=== PATIENT | female | born 1995 | race African-American/Black ===

== ENCOUNTER 2018-09-09 | Emergency (ER) | payer SELFPAY ==
[2018-09-09 00:17] VITALS: BP 119/64; PULSE 65; TEMP 98.4; BMI 38.7
--- NOTE | 2018-09-09 01:22 | PDOC ---
History of Present Illness - General Chief Complaint: Vaginal Sxs Stated Complaint: SWELLING,ANKLE Time Seen by Provider: 09/09/18 01:21 History Source: Patient Exam Limitations: No Limitations Past History - Travel Traveled outside of the country in the last 30 days: No Close contact w/someone who was outside of country & ill: No - Past Medical History Home Medications: Ambulatory Orders Cephalexin [Keflex] 500 mg PO BID 7 Days #14 capsule 09/09/18 metroNIDAZOLE [Metronidazole] 500 mg PO BID 7 Days #14 tablet 09/09/18 COPD: No - Suicide/Smoking/Psychosocial Hx Smoking History: Unknown if ever smoked Review of Systems - Review of Systems Able to Perform ROS?: Yes Is the patient limited [place] proficient: No *Physical Exam - Vital Signs Last Vital Signs Temp Pulse Resp BP Pulse Ox 98.4 F 65 20 119/64 100 09/09/18 00:11 09/09/18 00:11 09/09/18 00:11 09/09/18 00:11 09/09/18 00:11 - Physical Exam Comments: Vitals stable, pt afebrile. Pt in NAD, normal body habitus. Pt alert and oriented x3. restaurant front manager generally intact, muscular strength and sensation intact. No midline spinal tenderness, step-offs, or crepitus. Head normocephalic, atraumatic. Eyes PERRLA, EOMI. Oropharynx without erythema or exudates, no LAD b/l. No nasal congestion, hearing intact. Clear heart sounds, S1/S2, no JVD, b/l pedal edema, or heart murmur. Clear lung sounds, no respiratory distress, wheezes, crackles, or accessory muscle use. No abdominal or CVA tenderness to palpation, no rebound, no guarding. Abdomen soft, non-distended, and with normoactive bowel sounds. Skin without jaundice or rash. 09/09/18 01:57 *DC/Admit/Observation/Transfer Diagnosis at time of Disposition: Bacterial vaginosis - Discharge Dispostion Disposition: HOME Condition at time of disposition: Good Decision to Admit order: No - Referrals Referrals: [facility] [place] [Provider Group] Virgie Hills MD [Staff Physician] - - Patient Instructions Printed Discharge Instructions: DI for Bacterial Vaginosis Additional Instructions: You were seen in the ER today for vaginal itching. We are treating you with antibiotics, please take these as prescribed. Please take your medicine with some food, as they may cause some stomach upset and diarrhea. Please follow-up with your primary care doctor and [facility] within 1-2 days to discuss your visit and make sure your symptoms have improved. Please return to the ER if you have any worsening pain, development of fevers or chills, loss of consciousness, inability to tolerate food or fluids, or any other concerns. - Post Discharge Activity
--- NOTE | 2018-09-09 01:34 | PDOC ---
Attending Attestation - Resident Resident Name: VikiVeronica - ED Attending Attestation I have performed the following: I have examined & evaluated the patient, The case was reviewed & discussed with the resident, I agree w/resident's findings & plan - HPI HPI: 09/09/18 02:13 23-year-old female with vaginal discharge and dysuria. She admits to sexual activity with 1 partner, unprotected. - Physicial Exam PE: 09/09/18 02:14 GENERAL: Awake, in no acute distress HEAD: No signs of trauma EYES: ENT:clear without exudates. Moist mucosa NECK: Normal ROM, LUNGS:. Normal work of breathing. HEART: Regular rate and rhythm, ABDOMEN: Soft, nondistended EXTREMITIES:. No erythema, or tenderness NEUROLOGICAL: Alert, SKIN: Warm, Dry - Medical Decision Making 09/09/18 02:19 23-year-old female with vaginal discharge and history of unprotected intercourse Plan for GC/chlamydia treatment DC on Keflex and Flagyl Patient advised that formal cultures are pending and she should refrain from sexual activity, she is also aware that if positive her partner will need treatment as well
[2018-09-09 01:48] LABS: EPI CELLS 17.4 /HPF (0-5/HPF); HYALINE CASTS 21 /lpf (0-8); URINE APPEARANCE TURBID; URINE BACTERIA 418.5 /hpf (NEGATIVE); URINE BILIRUBIN NEGATIVE (NEGATIVE); URINE COLOR YELLOW; URINE GLUCOSE (UA) NEGATIVE (NEGATIVE); URINE KETONE NEGATIVE (NEGATIVE); URINE LEUK ESTERASE 3+ (NEGATIVE); URINE NITRITE NEGATIVE (NEGATIVE); URINE PROTEIN 1+ (NEGATIVE); URINE RBC 12 /hpf (0-4); URINE WBC 535 /hpf (0-5)
[2018-09-09] MEDS ORDERED: AZITHROMYCIN 500 MG TABLET PO ONE (02:05)
[2018-09-09] MEDS ORDERED: metroNIDAZOLE 500 MG TABLET PO ONE (02:06)
[2018-09-09] MEDS ORDERED: metroNIDAZOLE 250 MG TABLET ONE (02:11)
[2018-09-09] MEDS ORDERED: cefTRIAXone SODIUM 1 GM VIAL ONE (02:11)
[2018-09-09] MEDS ORDERED: AZITHROMYCIN 250 MG TABLET ONE (02:11)
[2018-09-09] MEDS ORDERED: LIDOCAINE HCL 1%, 10 MG/ML (20ML VIAL) ONE (02:14)
== END 2018-09-09 02:22 | disposition home or self-care (01) ==
LOC: JER
DX: N76.0 Acute vaginitis (principal); B96.89 Other specified bacterial agents as the cause of diseases classified elsewhere
CPT/HCPCS: 36415; 81003; 84703; 87491; 87591; 87661; 96372; 99281-25

== ENCOUNTER 2018-12-16 04:59 | Emergency (ER) | payer OTHER ==
[2018-12-16 06:07] VITALS: BP 123/51; PULSE 84; TEMP 98.2; BMI 34.7
--- NOTE | 2018-12-16 07:30 | PDOC ---
History of Present Illness - General Chief Complaint: Vaginal Sxs Stated Complaint: VAGINAL ODOR Time Seen by Provider: 12/16/18 07:29 Past History - Past Medical History Allergies/Adverse Reactions: Allergies Allergy/AdvReac Type Severity Reaction Status Date / Time No Known Allergies Allergy Verified 12/16/18 06:07 Home Medications: Ambulatory Orders Cephalexin [Keflex] 500 mg PO BID 7 Days #14 capsule 09/09/18 metroNIDAZOLE [Metronidazole] 500 mg PO BID 7 Days #14 tablet 09/09/18 COPD: No - Psycho Social/Smoking Cessation Hx Smoking History: Never smoked Hx Alcohol Use: No Drug/Substance Use Hx: No *Physical Exam - Vital Signs Last Vital Signs Temp Pulse Resp BP Pulse Ox 98.2 F 84 78 H 123/51 L 100 12/16/18 05:00 12/16/18 05:00 12/16/18 05:00 12/16/18 05:00 12/16/18 05:00 Medical Decision Making - Medical Decision Making 23F 12/16/18 07:30 Discharge - Discharge Information Condition: Fair - Follow up/Referral - Patient Discharge Instructions - Post Discharge Activity
--- NOTE | 2018-12-16 07:31 | PDOC ---
History of Present Illness - General Chief Complaint: Vaginal Sxs Stated Complaint: VAGINAL ODOR Time Seen by Provider: 12/16/18 07:29 - History of Present Illness Initial Comments: 12/16/18 07:29 Ms. Valdes is a 23 yo female w/ pmh of BV who presents for evaluation of foul smelling urine. Patient reports she has commonly had foul smelling vaginal smell following her menstrual cycle and believes this to be a similar episode. Denies any other symptoms. Denies any pain or discharge. Does not believe she is at this time. The patient denies chest pain, shortness of breath, headache and dizziness. Denies fever, chills, nausea, vomit, diarrhea and constipation. Denies dysuria, frequency, urgency and hematuria. Past History - Past Medical History Allergies/Adverse Reactions: Allergies Allergy/AdvReac Type Severity Reaction Status Date / Time No Known Allergies Allergy Verified 12/16/18 06:07 Home Medications: Ambulatory Orders Cephalexin [Keflex] 500 mg PO BID 7 Days #14 capsule 09/09/18 metroNIDAZOLE [Metronidazole] 500 mg PO BID 7 Days #14 tablet 09/09/18 metroNIDAZOLE [Flagyl -] 500 mg PO BID #14 tablet 12/16/18 COPD: No - Psycho Social/Smoking Cessation Hx Smoking History: Never smoked Hx Alcohol Use: No Drug/Substance Use Hx: No Review of Systems - Review of Systems Comments:: 12/16/18 07:31 GENERAL/CONSTITUTIONAL: No fever or chills. No weakness. HEAD, EYES, EARS, NOSE AND THROAT: No change in vision. No ear pain or discharge. No sore throat. CARDIOVASCULAR: No chest pain or shortness of breath RESPIRATORY: No cough, wheezing, or hemoptysis. GASTROINTESTINAL: No nausea, vomiting, diarrhea or constipation. GENITOURINARY: +Vaginal smell as described. No dysuria, frequency, or change in urination. MUSCULOSKELETAL: No joint or muscle swelling or pain. No neck or back pain. SKIN: No rash NEUROLOGIC: No headache, vertigo, loss of consciousness, or change in strength/ sensation. ENDOCRINE: No increased thirst. No abnormal weight change HEMATOLOGIC/LYMPHATIC: No anemia, easy bleeding, or history of blood clots. ALLERGIC/IMMUNOLOGIC: No hives or skin allergy. *Physical Exam - Vital Signs Last Vital Signs Temp Pulse Resp BP Pulse Ox 98.2 F 84 78 H 123/51 L 100 12/16/18 05:00 12/16/18 05:00 12/16/18 05:00 12/16/18 05:00 12/16/18 05:00 - Physical Exam Comments: 12/16/18 07:31 GENERAL: Awake, alert, and fully oriented, in no acute distress HEAD: No signs of trauma, normocephalic, atraumatic EYES: PERRLA, EOMI, sclera anicteric, conjunctiva clear ENT: Auricles normal inspection, hearing grossly normal, nares patent, oropharynx clear without exudates. Moist mucosa NECK: Normal ROM, supple, no lymphadenopathy, JVD, or masses LUNGS: No distress, speaks full sentences, clear to auscultation bilaterally HEART: Regular rate and rhythm, normal S1 and S2, no murmurs, rubs or gallops, peripheral pulses normal and equal bilaterally. ABDOMEN: Soft, nontender, normoactive bowel sounds. No guarding, no rebound. No masses EXTREMITIES: Normal inspection, Normal range of motion, no edema. No clubbing or cyanosis. NEUROLOGICAL: Cranial nerves II through XII grossly intact. Normal speech, normal gait, no focal sensorimotor deficits SKIN: Warm, Dry, normal turgor, no rashes or lesions noted. : Vaginal exam significant only for thickened physiologic discharge. No CMT, no blood noted in vaginal vault, no adnexal tenderness. Medical Decision Making - Medical Decision Making 12/16/18 07:53 Ms. Valdes is a 23 yo female w/ pmh as described who presents for evaluation of symptoms concerning for BV vs. trichomonis vs. UTI vs. STI. Patient exam concerning for thickened discharge c/w candidiasis. Given patient's prior trichomonal diagnosis and concern for gonorrhea/chlamydia on repeat evaluation, will cover patient for trichomonis, doris, and gonorrhea/chlamydia empirically. Diflucan, rocephin, and azithromycin given in ED. Flagyl sent to pt 's pharmacy. Patient elected to leave prior to UA being sent. UA/UCx will be followed-up. Discharge - Discharge Information Problems reviewed: Yes Clinical Impression/Diagnosis: Vaginal symptom Condition: Fair Disposition: HOME - Additional Discharge Information Prescriptions: metroNIDAZOLE [Flagyl -] 500 mg PO BID #14 tablet - Follow up/Referral - Patient Discharge Instructions Patient Printed Discharge Instructions: DI for Vaginal Yeast Infection Additional Instructions: You were evaluated today in the ER for your vaginal symptoms. We sent your urine for evaluation and performed a vaginal exam which was significant for discharge concerning for infection. We gave you medication coverage for fungal, bacterial, and viral infections and sent a proscription to your pharmacy. Please follow-up with primary care provider later this week for further evaluation. Return to ER if any fever, chills, pain, or other concerning symptoms. - Post Discharge Activity
[2018-12-16] MEDS ORDERED: AZITHROMYCIN 500 MG TABLET PO ONE (07:45)
[2018-12-16] MEDS ORDERED: FLUCONAZOLE 150 MG TABLET PO ONE (07:45)
--- NOTE | 2018-12-16 08:39 | PDOC ---
Attending Attestation - Resident Resident Name: RolansharimannyAnoopKvng - ED Attending Attestation I have performed the following: I have examined & evaluated the patient, The case was reviewed & discussed with the resident, I agree w/resident's findings & plan - HPI HPI: 12/16/18 08:37 23-year-old female with history of trichomonas in the past presents now with intermittent foul-smelling discharge/odor from vagina without pelvic pain or fevers or chills or abnormal bleeding. No urinary complaints. - Physicial Exam PE: 12/16/18 08:37 Vitals are stable, urine pending Well-appearing, afebrile Abdomen benign Pelvic per resident note - Medical Decision Making 12/16/18 08:38 23-year-old female presenting with vaginal discharge and foul odor, history of trichomonas. Treated empirically with cef/azithro/flagyl left before UA/urine preg resulted, will call with any change in plan f/u communication and outreach manager
[2018-12-16 08:48] LABS: PH,URINE 5.5 (5.0-8.0); URINE APPEARANCE CLEAR; URINE BILIRUBIN NEGATIVE (NEGATIVE); URINE COLOR YELLOW; URINE GLUCOSE (UA) NEGATIVE (NEGATIVE); URINE KETONE NEGATIVE (NEGATIVE); URINE LEUK ESTERASE NEGATIVE (NEGATIVE); URINE NITRITE NEGATIVE (NEGATIVE); URINE PROTEIN NEGATIVE (NEGATIVE); URINE UROBILINOGEN 0.2 mg/dL (0.2-1.0)
== END 2018-12-16 09:29 | disposition home or self-care (01) ==
LOC: JER 04:59
DX: B37.3 Candidiasis of vulva and vagina (principal); Z87.42 Personal history of other diseases of the female genital tract; Z86.19 Personal history of other infectious and parasitic diseases
CPT/HCPCS: 81003; 84703; 99282-25

== ENCOUNTER 2019-01-31 00:16 | Emergency (ER) | payer OTHER ==
[2019-01-31 01:57] VITALS: BP 138/69; PULSE 72; TEMP 97.6; BMI 35.4
--- NOTE | 2019-01-31 02:09 | PDOC ---
Attending Attestation - Resident Resident Name: Gaurang Eugene - ED Attending Attestation I have performed the following: I have examined & evaluated the patient, The case was reviewed & discussed with the resident, I agree w/resident's findings & plan - HPI HPI: 01/31/19 03:09 Pt has a numb inedx finger on her right hand. She wrks at [employer], but she has been on vacation x 1 week. She doesn't work out, she hasn't injured self and she has no other complaints. She sleeps on her side, and she hay have caused a peripheral neuropathy. Pt has no cervical pain or pain radiating down from the neck. - Physicial Exam PE: 01/31/19 03:11 Agree with resident exam. 01/31/19 03:12 Pt has clear heart and lungs and she has no fever and no abd pain. No pain or spasm in the neck and the trapezius. She has no skin color changes. She has normal cap refill of all fingers Good pulses and good strength in the fingers and the thumb. Pt complains of numbness in the index finger only. - Medical Decision Making 01/31/19 03:11 Pt will follow with neurology as an outpatient. She is requesting a work note.
[2019-01-31] MEDS ORDERED: KETOROLAC TROMETHAMINE 15 MG/ML VIAL IM ONE (02:14)
--- NOTE | 2019-01-31 02:16 | PDOC ---
History of Present Illness - General Chief Complaint: Pain, Acute Stated Complaint: NUMBNESS IN RT HAND Time Seen by Provider: 01/31/19 02:08 History Source: Patient Exam Limitations: No Limitations - History of Present Illness Initial Comments: 01/31/19 02:12 23 yo female no sig pmh presents to the ED for 2 days of numbness into her right hand fist 3 digits. Pt states she woke up with the pain yesterday and it has been constant ever since. Denies new work, repetitive motion, increased typing work. Denies weakness in the hand, dropping objects, MIRAMONTES, neck pain, shoulder pain, changes in vision, numbness or tingling in any other part of her body, F/C/N/V. Past History - Past Medical History Allergies/Adverse Reactions: Allergies Allergy/AdvReac Type Severity Reaction Status Date / Time No Known Allergies Allergy Verified 01/31/19 01:42 Asthma: Yes COPD: No - Immunization History Immunization Up to Date: Yes - Psycho Social/Smoking Cessation Hx Smoking History: Never smoked Hx Alcohol Use: No Drug/Substance Use Hx: No Review of Systems - Review of Systems Constitutional: No: Chills, Fever Respiratory: No: Shortness of Breath Cardiac (ROS): No: Chest Pain, Edema ABD/GI: No: Constipated, Diarrhea, Nausea, Vomiting : No: Burning, Dysuria Musculoskeletal: Yes: Other (right hand first 3 digits numbness and tingling denies weakness). No: Back Pain, Neck Pain, Joint Stiffness Integumentary: No: Bruising, Change in Color, Rash *Physical Exam - Vital Signs Last Vital Signs Temp Pulse Resp BP Pulse Ox 97.6 F 72 16 138/69 100 01/31/19 01:30 01/31/19 01:30 01/31/19 01:30 01/31/19 01:30 01/31/19 01:30 - Physical Exam General Appearance: Yes: Nourished, Appropriately Dressed. No: Apparent Distress HEENT: positive: EOMI Neck: positive: Supple. negative: Carotid bruit Respiratory/Chest: positive: Lungs Clear, Normal Breath Sounds. 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 negative: Sensory Deficit Medical Decision Making - Medical Decision Making 01/31/19 02:21 23 yo female no sig pmh presents to the ED for 2 days of numbness into her right hand fist 3 digits. Pt states she woke up with the pain yesterday and it has been constant ever since. Denies new work, repetitive motion, increased typing work. Denies weakness in the hand, dropping objects, MIRAMONTES, neck pain, shoulder pain, changes in vision, numbness or tingling in any other part of her body, F/C/N/V. vitals WNL pt denies Trauma, has median nerve distribution of numbness with a positive phalens test. Pt safe for DC home after toradol 15 mg IM for pain and Ortho f/u Discharge - Discharge Information Problems reviewed: Yes Clinical Impression/Diagnosis: Median nerve compression Condition: Stable Disposition: HOME - Admission No - Follow up/Referral Referrals: Favio Coronado MD [Staff Physician] - Ben Brock DO [Staff Physician] - - Patient Discharge Instructions Patient Printed Discharge Instructions: Carpal Tunnel Syndrome Additional Instructions: Please make an appointment with the Orthopedic surgeon if your symptoms persist. See your Primary Doctor within 48 hours. Take over the counter NSAID medication for pain relief. Return to the ER for new or concerning symptoms including but not limited to: weakness into your hands, neck pain, headaches or changes in vision thank you - Post Discharge Activity Work/Back to School Note: Back to Work
[2019-01-31] MEDS ORDERED: KETOROLAC TROMETHAMINE 15 MG/ML VIAL ONE (02:42)
== END 2019-01-31 03:21 | disposition home or self-care (01) ==
LOC: JER 00:16
PROC: 3E0233Z Introduction of Anti-inflammatory into Muscle, Percutaneous Approach (ICD-10-PCS; principal; 2019-01-31)
DX: G56.01 Carpal tunnel syndrome, right upper limb (principal)
CPT/HCPCS: 96372; 99281-25

== ENCOUNTER 2019-03-02 09:23 | Emergency (ER) | payer OTHER ==
[2019-03-02 09:54] VITALS: BP 130/52; PULSE 72; TEMP 98; BMI 34.7
--- NOTE | 2019-03-02 10:41 | PDOC ---
History of Present Illness - General Chief Complaint: Pain, Acute Stated Complaint: RT. ARM PAIN/ NUMBNESS Time Seen by Provider: 03/02/19 10:22 History Source: Patient Exam Limitations: No Limitations - History of Present Illness Initial Comments: 03/02/19 10:36 Pt is a 23 y/o female who presents to the ED with complaint of R wrist pain with numbness in her index finger which she has had since . She states that the symptoms are more prominent after sleeping. She states she is now having pain in her R elbow as well. She denies any known injury. She was seen around and told that she had symptoms of carpal tunnel. The patient did not get a velcro wrist brace and has not been taking any NSAIDs. She states the symptoms have gotten worse so she returned to the ED for re- evaluation. 03/02/19 11:01 Timing/Duration: getting worse, intermittent Severity: moderate Past History - Past Medical History Allergies/Adverse Reactions: Allergies Allergy/AdvReac Type Severity Reaction Status Date / Time No Known Allergies Allergy Verified 03/02/19 09:55 Home Medications: Ambulatory Orders Arm Brace [Wrist Brace] 1 each HS #1 each 03/02/19 Ibuprofen 600 mg PO TID PRN #21 tablet 03/02/19 Asthma: Yes COPD: No Other medical history: CARPEL TUNNEL - Immunization History Immunization Up to Date: Yes - Psycho Social/Smoking Cessation Hx Smoking History: Never smoked Hx Alcohol Use: No Drug/Substance Use Hx: No Review of Systems - Review of Systems Constitutional: No: Diaphoresis, Fever, Weakness HEENTM: No: Recent change in vision Respiratory: No: Shortness of Breath Cardiac (ROS): No: Chest Pain Musculoskeletal: Yes: Muscle Pain. No: Back Pain, Joint Pain, Joint Swelling, Muscle Weakness, Neck Pain, Joint Stiffness Integumentary: No: Rash Neurological: Yes: Paresthesia. No: Headache, Pre-Existing Deficit, Seizure, Tingling, Weakness, Unsteady Gait, Ataxia, Dizziness *Physical Exam - Vital Signs Last Vital Signs Temp Pulse Resp BP Pulse Ox 98.0 F 72 16 130/52 L 99 03/02/19 09:51 03/02/19 09:51 03/02/19 09:51 03/02/19 09:51 03/02/19 09:51 - Physical Exam General Appearance: Yes: Appropriately Dressed. No: Apparent Distress Neck: negative: Decreased range of motion, Rigidity, Tender lateral, Tender midline Comments:: 03/02/19 10:44 R wrist with + tinel's sign and +phalen's sign + reproducible pain and numbness with compression over the cubital and carpal tunnels FROM all fingers Pt able to flex and extend at the wrist Sensation intact to the radial, median and ulnar nerve distributions Extremity: positive: Normal Inspection, Normal Range of Motion. negative: Delayed Capillary Refill, Swelling, Erythema, Inflammation Integumentary: positive: Normal Color, Dry, Warm Neurologic: positive: Fully Oriented, Alert, Normal Mood/Affect. negative: Sensory Deficit Medical Decision Making - Medical Decision Making 03/02/19 10:47 Pt is a 23 y/o female with symptoms of carpal and cubital tunnel syndromes. She has been given instructions on how to wear a removable velcro wrist splint primarily at night. She has also been advised on how to keep her elbow in extension using something like a sports elbow pad. She has been encouraged to follow up with her primary doctor or orthopaedic surgery for further evaluation and treatment. She has been made aware that she may require a nerve conduction study as an outpatient if her symptoms do not resolve. An Rx was sent to her pharmacy for ibuprofen 600mg and a velcro wrist brace. The patient understands and agrees with this treatment and plan. 03/02/19 11:02 Discharge - Discharge Information Problems reviewed: Yes Clinical Impression/Diagnosis: Median nerve compression Condition: Stable Disposition: HOME - Additional Discharge Information Prescriptions: Arm Brace [Wrist Brace] 1 each HS #1 each Ibuprofen 600 mg PO TID PRN #21 tablet PRN Reason: Pain Level 4 - 6 - Follow up/Referral Referrals: Ben Brock DO [Staff Physician] - - Patient Discharge Instructions Patient Printed Discharge Instructions: Cubital Tunnel Syndrome, Carpal Tunnel Syndrome - Post Discharge Activity Work/Back to School Note: Back to Work
== END 2019-03-02 11:26 | disposition home or self-care (01) ==
LOC: JERFT 09:23
DX: G56.01 Carpal tunnel syndrome, right upper limb (principal)
CPT/HCPCS: 99281-25

== ENCOUNTER 2019-03-04 16:48 | Emergency (ER) | payer OTHER ==
[2019-03-04 17:00] VITALS: BP 114/60; PULSE 89; TEMP 98.2; BMI 35.4
--- NOTE | 2019-03-04 17:01 | PDOC ---
Rapid Medical Evaluation Chief Complaint: Cold Symptoms Time Seen by Provider: 03/04/19 16:59 Medical Evaluation: Allergies Allergy/AdvReac Type Severity Reaction Status Date / Time No Known Allergies Allergy Verified 03/02/19 09:55 Vital Signs Temp Pulse Resp BP Pulse Ox 98.2 F 89 18 114/60 99 03/04/19 16:57 03/04/19 16:57 03/04/19 16:57 03/04/19 16:57 03/04/19 16:57 03/04/19 17:00 Pt c/o: stuffy nose and sore throat, no fever, travel, motrin taken with mod effect pt on brief exam: vss, no erythema to soft palate/tonsillar region Pt ordered for: none pt to proceed to the ED Discharge Disposition - Diagnosis Sore throat - Discharge Dispostion Condition at time of disposition: Stable - Referrals - Patient Instructions - Post Discharge Activity
--- NOTE | 2019-03-04 18:09 | PDOC ---
History of Present Illness - General Chief Complaint: Cold Symptoms Stated Complaint: COLD SYMPTOMS Time Seen by Provider: 03/04/19 16:59 - History of Present Illness Initial Comments: 03/04/19 18:07 23-year-old female without comorbidities presents for evaluation of flulike symptoms x2 days. Past History - Past Medical History Allergies/Adverse Reactions: Allergies Allergy/AdvReac Type Severity Reaction Status Date / Time No Known Allergies Allergy Verified 03/02/19 09:55 Home Medications: Ambulatory Orders Arm Brace [Wrist Brace] 1 each MC ONCE #1 each 03/03/19 Ibuprofen 600 mg PO QID PRN #20 tablet 03/03/19 Asthma: Yes COPD: No - Immunization History Immunization Up to Date: Yes - Psycho Social/Smoking Cessation Hx Smoking History: Never smoked Have you smoked in the past 12 months: No Information on smoking cessation initiated: No Hx Alcohol Use: No Drug/Substance Use Hx: No Review of Systems - Review of Systems Constitutional: Yes: Fever HEENTM: Yes: Nose Congestion, Throat Pain, Difficulty Swallowing Respiratory: Yes: Cough *Physical Exam - Vital Signs Last Vital Signs Temp Pulse Resp BP Pulse Ox 98.2 F 89 18 114/60 99 03/04/19 16:57 03/04/19 16:57 03/04/19 16:57 03/04/19 16:57 03/04/19 16:57 - Physical Exam 03/04/19 18:08 GENERAL: The patient is awake, alert, and fully oriented, in no acute distress. HEAD: Normal with no signs of trauma. EYES: sclera anicteric, conjunctiva clear. ENT: Ears normal tympanic membranes normal oropharynx clear uvula midline NECK: Normal range of motion LUNGS: Breath sounds equal, clear to auscultation bilaterally. No wheezes, and no crackles. HEART: S1 and S2 without murmur, rub or gallop. ABDOMEN: Soft, nontender, normoactive bowel sounds. No guarding, no rebound. No masses. EXTREMITIES: Normal range of motion, no edema. No clubbing or cyanosis. No cords, erythema, or tenderness. NEUROLOGICAL: Cranial nerves II through XII grossly intact. Normal speech, normal gait. PSYCH: Normal mood, normal affect. SKIN: Warm, Dry, normal turgor, no rashes or lesions noted. Medical Decision Making - Medical Decision Making 03/04/19 18:08 Negative flu and strep swabs most likely viral upper respiratory infection follow-up with primary care physician Discharge - Discharge Information Problems reviewed: Yes Clinical Impression/Diagnosis: Sore throat Condition: Stable Disposition: HOME - Admission No - Follow up/Referral - Patient Discharge Instructions Patient Printed Discharge Instructions: DI for Viral Upper Respiratory Infection -- Adult Additional Instructions: Tylenol Motrin any pain fever discomfort return to the emergency room for worsening symptoms and follow-up with your primary care physician in 1 to 2 days for further evaluation and treatment options. Follow-up without fail. - Post Discharge Activity
== END 2019-03-04 18:14 | disposition home or self-care (01) ==
LOC: JERFT 16:48
DX: J02.9 Acute pharyngitis, unspecified (principal)
CPT/HCPCS: 87070; 87804; 87880; 99281-25

== ENCOUNTER 2019-03-17 17:28 | Emergency (ER) | payer OTHER ==
[2019-03-17 17:54] VITALS: BP 126/52; PULSE 82; TEMP 97.9; BMI 34.7
--- NOTE | 2019-03-17 17:55 | PDOC ---
Rapid Medical Evaluation Time Seen by Provider: 03/17/19 17:51 Medical Evaluation: Allergies Allergy/AdvReac Type Severity Reaction Status Date / Time No Known Allergies Allergy Verified 03/02/19 09:55 03/17/19 17:52 Pt c/o: pain to right hand and arm since , was given a brace and motrin with no improvement Pt on brief exam: FROM of wrist and elbow, no redness or edema Pt ordered for: none Pt to proceed to the ED Discharge Disposition - Diagnosis Right arm pain, Carpal tunnel syndrome - Discharge Dispostion Disposition: HOME Condition at time of disposition: Stable - Referrals Referrals: David Paredes MD [Staff Physician] - - Patient Instructions Additional Instructions: Nighttime splinting as discussed. Continue the anti-inflammatories and without fail follow-up with orthopedic hand surgery in 2 to 3 weeks for further evaluation and treatment options. - Post Discharge Activity
--- NOTE | 2019-03-17 18:20 | PDOC ---
History of Present Illness - General Chief Complaint: Pain Stated Complaint: PAINFUL ARM Time Seen by Provider: 03/17/19 17:51 - History of Present Illness Initial Comments: 03/17/19 18:18 23-year-old female without comorbidities presents for evaluation of carpal tunnel syndrome for the right wrist. Previously diagnosed given a course of anti-inflammatories she has not had any relief. She does not use nighttime splinting Past History - Past Medical History Allergies/Adverse Reactions: Allergies Allergy/AdvReac Type Severity Reaction Status Date / Time No Known Allergies Allergy Verified 03/02/19 09:55 Home Medications: Ambulatory Orders Arm Brace [Wrist Brace] 1 each MC ONCE #1 each 03/03/19 Ibuprofen 600 mg PO QID PRN #20 tablet 03/03/19 Asthma: Yes COPD: No - Immunization History Immunization Up to Date: Yes - Psycho Social/Smoking Cessation Hx Smoking History: Never smoked Have you smoked in the past 12 months: No Hx Alcohol Use: No Drug/Substance Use Hx: No Review of Systems - Review of Systems Musculoskeletal: Yes: Joint Pain Neurological: Yes: Numbness, Tingling *Physical Exam - Vital Signs Last Vital Signs Temp Pulse Resp BP Pulse Ox 97.9 F 82 16 126/52 L 99 03/17/19 17:52 03/17/19 17:52 03/17/19 17:52 03/17/19 17:52 03/17/19 17:52 - Physical Exam 03/17/19 18:18 ) Skin color and temperature normal range of motion is full of the shoulder elbow wrist forearm and hand. All fingers have full range of motion which is nonpainful. Mildly positive Tinel sign at the elbow positive median nerve compression and Phalen sign at the wrist otherwise neurovascular intact without gross sensorimotor deficits Medical Decision Making - Medical Decision Making 03/17/19 18:18 Patient is on 600 Motrin 3 times daily will implement nighttime splinting and hand surgery follow-up Discharge - Discharge Information Problems reviewed: Yes Clinical Impression/Diagnosis: Right arm pain, Carpal tunnel syndrome Condition: Stable Disposition: HOME - Admission No - Follow up/Referral Referrals: David Paredes MD [Staff Physician] - - Patient Discharge Instructions Additional Instructions: Nighttime splinting as discussed. Continue the anti-inflammatories and without fail follow-up with orthopedic hand surgery in 2 to 3 weeks for further evaluation and treatment options. - Post Discharge Activity
== END 2019-03-17 18:34 | disposition home or self-care (01) ==
LOC: JERFT 17:28
DX: G56.01 Carpal tunnel syndrome, right upper limb (principal)
CPT/HCPCS: 99281-25

== ENCOUNTER 2019-05-02 11:30 | Emergency (ER) | payer OTHER ==
[2019-05-02 11:48] VITALS: BP 115/72; PULSE 82; TEMP 97.7; BMI 34.7
[2019-05-02] MEDS ORDERED: ONDANSETRON *ODT* 4 MG TABLET SL ONE (13:07)
[2019-05-02] MEDS ORDERED: ONDANSETRON *ODT* 4 MG TABLET ONE (13:12)
--- NOTE | 2019-05-02 13:29 | PDOC ---
History of Present Illness - General Chief Complaint: Pain Stated Complaint: STOMACH PAIN/NAUSEA Time Seen by Provider: 05/02/19 12:19 History Source: Patient Exam Limitations: No Limitations - History of Present Illness Initial Comments: 05/02/19 13:21 HISTORY OF PRESENT ILLNESS: 24-year-old woman with past medical history presents emergency department for evaluation of nausea and vomiting for 3 days. Patient reports she was seen and told she had a stomach virus but is concerned that the symptoms persist. Patient reports she had loose brown stools 3 days ago which have now firmed up. She denies any fevers or chills. Daughter is here for similar symptoms. No recent travel or sick contacts. PAST MEDICAL HISTORY: Denies past medical history SURGICAL HISTORY: Denies ALLERGIES: No known drug allergies REVIEW OF SYSTEMS General/Constitutional: Denies fever or chills. Denies weakness, weight change. HEENT: Denies change in vision. Denies ear pain or discharge. Denies sore throat. Cardiovascular: Denies chest pain or shortness of breath. Respiratory: Denies cough, wheezing, or hemoptysis. Gastrointestinal: See HPI Genitourinary: Denies dysuria, frequency, or change in urination. Musculoskeletal: Denies joint or muscle swelling or pain. Denies neck or back pain. Skin and breasts: Denies rash or easy bruising. Neurologic: Denies headache, vertigo, loss of consciousness, or loss of sensation. Psychiatric: Denies depression or anxiety. Endocrine: Denies increased thirst. Denies abnormal weight change. Hematologic/Lymphatic: Denies anemia, easy bleeding, or history of blood clots. Allergic/Immunologic: Denies hives or skin allergy. Denies latex allergy. PHYSICAL EXAM General Appearance: Well-appearing, appropriately dressed. No apparent distress , no intoxication. HEENT: EOMI, PERRLA, normal ENT inspection, normal voice, TMs normal, pharynx normal. No conjunctival pallor. No photophobia, scleral icterus. Respiratory/Chest: Lungs CTAB. No shortness of breath, chest tenderness, respiratory distress, accessory muscle use. No crackles, rales, rhonchi, stridor , wheezing, dullness Cardiovascular: RRR. S1, S2. No JVD, murmur, bradycardia, tachycardia. Gastrointestinal/Abdominal: Normal bowel sounds. Abdomen soft, non-distended. No tenderness or rebound tenderness. No organomegaly, pulsatile mass, guarding, hernia, hepatomegaly, splenomegaly. Past History - Past Medical History Allergies/Adverse Reactions: Allergies Allergy/AdvReac Type Severity Reaction Status Date / Time No Known Allergies Allergy Verified 05/02/19 11:45 Home Medications: Ambulatory Orders Arm Brace [Wrist Brace] 1 each MC ONCE #1 each 03/03/19 Ibuprofen 600 mg PO QID PRN #20 tablet 03/03/19 Ondansetron [Zofran -] 4 mg PO TID PRN #21 tablet 05/02/19 Asthma: Yes COPD: No - Immunization History Immunization Up to Date: Yes - Psycho Social/Smoking Cessation Hx Smoking History: Never smoked Have you smoked in the past 12 months: No Information on smoking cessation initiated: No Hx Alcohol Use: No Drug/Substance Use Hx: No *Physical Exam - Vital Signs Last Vital Signs Temp Pulse Resp BP Pulse Ox 97.7 F 82 17 115/72 100 05/02/19 11:45 05/02/19 11:45 05/02/19 11:45 05/02/19 11:45 05/02/19 11:45 ED Treatment Course - Medications Given in the ED: ED Medications Discontinued Medications Generic Name Dose Route Start Last Admin Trade Name Freq PRN Reason Stop Dose Admin Ondansetron HCl 4 mg 05/02/19 13:07 05/02/19 13:15 Zofran Odt - SL 05/02/19 13:08 4 mg ONCE ONE Administration Medical Decision Making - Medical Decision Making 05/02/19 13:24 A/P: 24-year-old woman past medical history of asthma with nausea and vomiting resolving diarrhea over 3 days Physical exam is unremarkable Patient is tolerating water during exam Zofran 4 mg sublingual now Reassess 05/02/19 14:12 Patient reports he feels better after receiving Zofran. As child is having similar symptoms and currently feels better I feel is safe to discharge home to follow-up with a primary doctor as needed. I will provide a prescription for Zofran for an acute gastroenteritis. I discussed the physical exam findings, ancillary test results and final diagnoses with the patient. I answered all of the patient's questions. The patient was satisfied with the care received and felt comfortable with the discharge plan and treatment plan. The patient will call their primary care physician within 24 hours to arrange follow-up and will return to the Emergency Department with any new, persistent or worsening symptoms. Portions of this note have been documented using voice recognition software. As a result, errors may occur in the automatic buffer process. Effort has been made to correct all grammatical and automatic buffer error, but some may have been missed which may produce sporadic inaccurate automatic buffer or nonsensical phrases. Discharge - Discharge Information Problems reviewed: Yes Clinical Impression/Diagnosis: Gastroenteritis Condition: Fair Disposition: HOME - Admission No - Additional Discharge Information Prescriptions: Ondansetron [Zofran -] 4 mg PO TID PRN #21 tablet PRN Reason: Nausea And/Or Vomiting - Follow up/Referral - Patient Discharge Instructions Additional Instructions: Rest, drink lots of fluids: Teas, water, soups Olya ashley, carbonated beverages for the bubbles May try peppermint teas Avoid heavy , spicy or fatty foods until symptoms have resolved Avoid contact with others until fevers and symptoms resolved Lots of handwashing and good hygiene Continue [id number] medications for symptomatic relief Tylenol or Motrin for fever and pain May use Zofran-one tablet dissolved on tongue as needed for nausea. May repeat times one every 8 hours Followup with private physician in one to 2 days as needed Return to emergency department for worsened symptoms, fevers, dehydration - Post Discharge Activity
== END 2019-05-02 14:25 | disposition home or self-care (01) ==
LOC: JERFT 11:30
DX: K52.9 Noninfective gastroenteritis and colitis, unspecified (principal); J45.909 Unspecified asthma, uncomplicated
CPT/HCPCS: 99283-25; Q0162